=== PATIENT | female | born 1985 | race Caucasian/White ===

== ENCOUNTER 2023-06-21 20:32 | Emergency (ER) | payer SELFPAY ==
--- NOTE | 2023-06-21 21:12 | RAD REPORT ---
EXAM DESCRIPTION: RAD - Chest Single View - 06/21/2023 9:06 pm CLINICAL HISTORY: Chest pain;Dyspnea Chest pain. COMPARISON: <Comparisons> FINDINGS: Portable technique limits examination quality. The lungs are grossly clear. The heart is normal in size. No displaced fractures. IMPRESSION: No acute intrathoracic process suspected.
[2023-06-21 21:31] LABS: Absolute Basophils 0.1 K/uL (0-0.5); Absolute Eosinophils 0.1 K/uL (0-0.5); Absolute Lymphocytes (CBC) 2.1 K/uL (0.7-4.9); Absolute Monocytes 0.8 K/uL (0.1-1.3); Absolute Neutrophil 6.8 K/uL (1.8-8.0); Basophils % 0.8 % (0-1.3); Eosinophils % 1.5 % (0-4.4); Hematocrit 41.6 % (36.0-45.0); Hemoglobin 14.1 g/dL (12.0-15.0); Lymphocytes % 20.8 % (15.3-44.8); MCH 31.1 pg (27.0-35.0); MCV 91.4 fL (80-100); MPV 8.5 fL (7.6-11.3); Monocytes % 8.5 % (3.3-12.3); Neutrophils % 68.4 % (41.7-73.7); Nucleated Red Blood Cells % 0.1 % (0-0); Platelets 349 thou/uL (152-406); RBC Red Blood Cell Count 4.55 M/uL (3.86-4.86); Red Cell Distribution Width 12.4 % (12.1-15.2)
[2023-06-21 21:42] LABS: Anion Gap 6.8 mEq/L (5.0-15.0); Potassium 3.8 mEq/L (3.5-5.1)
--- NOTE | 2023-06-21 22:32 | EDPHYS ---
Physician Documentation [facility] Name: Nani Santana Age: 37 yrs Sex: Female : 1985 Arrival Date: 06/21/2023 Time: 20:32 Bed 18 Private MD: ED Physician Álvaro Gibbs HPI: 06/20 21:58 This 37 yrs old Female presents to ER via EMS with complaints of Chest Pain, Shortness kb Of Breath. 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 Pt was in [facility] and 2 other inmates started screaming just before her symptoms began. EMS reports HR was 135 upon their arrival and decreased to 105 when they got here. Denies fever. . Historical: - Allergies: 20:37 No Known Allergies; jb4 - Home Meds: 20:37 None [Active]; jb4 - PMHx: 20:37 None; jb4 - PSHx: 20:37 None; jb4 - Immunization history:: Adult Immunizations up to date. - Infectious Disease History:: Denies. - Social history:: Smoking status: Patient denies any tobacco usage or history of. ROS: 21:58 Constitutional: As per HPI kb Exam: 21:58 Constitutional: This is a well developed, well nourished patient who is awake, alert, kb and in no acute distress. Head/Face: Normocephalic, atraumatic. ENT: Moist Mucous membranes Cardiovascular: Regular rate Respiratory: Respirations even and unlabored. No increased work of breathing. Talking in full sentences Abdomen/GI: Soft, non-tender. No distention Skin: Warm, dry with normal turgor. Normal color. MS/ Extremity: Pulses equal, no cyanosis. Neurovascular intact. Full, normal range of motion. Neuro: Awake and alert, GCS 15, oriented to person, place, time, and situation. Moves all extremities. Normal gait. Vital Signs: 20:37 BP 154 / 110; Pulse 88; Resp 16; Temp 97.6; Pulse Ox 99% ; Weight 86.18 kg; Height 5 jb4 ft. 4 in. ; Pain 0/10; 21:33 BP 176 / 109; Pulse 76; Resp 16; Pulse Ox 98% on R/A; jb4 22:46 BP 150 / 101; Pulse 72; Resp 16; Pulse Ox 99% on R/A; jb4 20:37 Body Mass Index 32.61 (86.18 kg, 162.56 cm) jb4 20:37 Pain Scale: Adult jb4 MDM: 20:39 Patient medically screened. kb 22:01 Differential diagnosis: Anxiety Reaction pulmonary edema, acute WI, arrythmia. Data kb reviewed: vital signs, nurses notes. Historians other than the Patient: EMS: [facility]. 22:06 Counseling: I had a detailed discussion with the patient and/or guardian regarding the kb historical points, exam findings, and any diagnostic results supporting the discharge/admit diagnosis, lab results, radiology results, the need for outpatient follow up, a family practitioner, to return to the emergency department if symptoms worsen or persist or if there are any questions or concerns that arise at home. ED course: HEART score 0. 22:25 ED course: Pt sleeping comfortably upon discharge. kb 06/20 20:39 Order name: Basic Metabolic Panel; Complete Time: 21:45 kb 06/20 20:39 Order name: CBC with Diff; Complete Time: 21:55 kb 06/20 20:39 Order name: D-Dimer; Complete Time: 22:06 kb 06/20 20:39 Order name: Troponin HS; Complete Time: 21:45 kb 06/20 20:39 Order name: XRAY Chest (1 view); Complete Time: 21:14 kb 06/20 20:39 Order name: Cardiac monitoring; Complete Time: 21:13 kb 06/20 20:39 Order name: EKG - Nurse/Tech; Complete Time: 21:13 kb 06/20 20:39 Order name: IV Saline Lock; Complete Time: 21:13 kb 06/20 20:39 Order name: Labs collected and sent; Complete Time: 21:13 kb 06/20 20:39 Order name: O2 Per Protocol; Complete Time: 21:13 kb 06/20 20:39 Order name: O2 Sat Monitoring; Complete Time: 21:13 kb Administered Medications: No medications were administered Disposition: 06/21 05:08 Co-signature as Attending Physician, Álvaro Gibbs MD I agree with the assessment sp4 and plan of care. I reviewed the patient's care provided by the Advanced Practice Provider and agree with the diagnosis and treatment plan. Disposition Summary: 06/21/23 22:31 Discharge Ordered Notes: Location: Home kb Condition: Stable kb Diagnosis - Dyspnea kb Followup: kb - With: Emergency Department - When: As needed - Reason: Worsening of condition Followup: kb - With: Private Physician - When: 2 - 3 days - Reason: Recheck today's complaints, Continuance of care, Re-evaluation by your physician Discharge Instructions: - Discharge Summary Sheet kb - Shortness of Breath, Adult, Urgn-ya-Cecn kb - Panic Attack, [id number] kb Forms: - Medication Reconciliation Form kb - Thank You Letter kb - Antibiotic Education kb - Prescription Opioid Use kb - Patient Portal Instructions kb - Leadership Thank You Letter kb Signatures: Dispatcher [employer] EDMS Aiyana Soto, DEALERSHIP MANAGER-C LUIS-Ed Pascual, RN RN jb4 Álvaro Gibbs MD MD sp4 Corrections: (The following items were deleted from the chart) 06/20 20:40 20:40 BASIC METABOLIC PANEL+C.LAB.BRZ ordered. EDMS EDMS 20:40 20:40 CBC+H.LAB.BRZ ordered. EDMS EDMS 20:40 20:40 D-DIMER+COAG.LAB.BRZ ordered. EDMS EDMS 20:40 20:40 Troponin High Sensitivity+C.LAB.BRZ ordered. EDMS EDMS
--- NOTE | 2023-06-21 22:32 | ER ---
Nurse's Notes [facility] Name: Nani Santana Age: 37 yrs Sex: Female : 1985 Arrival Date: 06/21/2023 Time: 20:32 Bed 18 Private MD: Diagnosis: Dyspnea Presentation: 06/20 20:34 Chief complaint: Patient states: Pt reports SOB and chest tightness that started 1hr jb4 ago. Was given 324 of aspirin. Coronavirus screen: At this time, the client does not indicate any symptoms associated with coronavirus-19. Ebola Screen: No symptoms or risks identified at this time. Initial Sepsis Screen: Does the patient meet any 2 criteria? No. Patient's initial sepsis screen is negative. Does the patient have a suspected source of infection? No. Patient's initial sepsis screen is negative. Risk Assessment: Do you want to hurt yourself or someone else? Patient reports no desire to harm self or others. Onset of symptoms was June 21, 2023. Transition of care: patient was not received from another setting of care. 20:34 Method Of Arrival: EMS: [facility] jb4 20:34 Acuity: TIANNA 3 jb4 Triage Assessment: 20:37 General: Appears in no apparent distress. comfortable, Behavior is calm, cooperative, jb4 appropriate for age. Pain: Denies pain. EENT: No signs and/or symptoms were reported regarding the EENT system. Neuro: Level of Consciousness is awake, alert, obeys commands, Oriented to person, place, time, situation. Cardiovascular: Patient's skin is warm and dry. Respiratory: Airway is patent Respiratory effort is even, unlabored, Respiratory pattern is regular, symmetrical. GI: No signs and/or symptoms were reported involving the gastrointestinal system. : No signs and/or symptoms were reported regarding the genitourinary system. Derm: Skin is intact, Skin is pink, warm \T\ dry. Musculoskeletal: Circulation, motion, and sensation intact. Range of motion: intact in all extremities. Historical: - Allergies: 20:37 No Known Allergies; jb4 - Home Meds: 20:37 None [Active]; jb4 - PMHx: 20:37 None; jb4 - PSHx: 20:37 None; jb4 - Immunization history:: Adult Immunizations up to date. - Infectious Disease History:: Denies. - Social history:: Smoking status: Patient denies any tobacco usage or history of. Screenin:[address] [facility] ED Fall Risk Assessment (Adult) History of falling in the last 3 months, jb4 including since admission No falls in past 3 months (0 pts) Confusion or Disorientation No (0 pts) Intoxicated or Sedated No (0 pts) Impaired Gait No (0 pts) Mobility Assist Device Used No (0 pt) Altered Elimination No (0 pt) Score/Fall Risk Level 0 - 2 = Low Risk Oriented to surroundings, Maintained a safe environment. Abuse screen: Denies threats or abuse. Nutritional screening: No deficits noted. Tuberculosis screening: No symptoms or risk factors identified. Assessment: 20:44 Reassessment: see triage note. jb4 21:33 Reassessment: Patient appears in no apparent distress at this time. Patient and/or jb4 family updated on plan of care and expected duration. Pain level reassessed. Patient is alert, oriented x 3, equal unlabored respirations, skin warm/dry/pink. 22:46 Reassessment: Patient appears in no apparent distress at this time. Patient and/or jb4 family updated on plan of care and expected duration. Pain level reassessed. Patient is alert, oriented x 3, equal unlabored respirations, skin warm/dry/pink. Vital Signs: 20:37 BP 154 / 110; Pulse 88; Resp 16; Temp 97.6; Pulse Ox 99% ; Weight 86.18 kg; Height 5 jb4 ft. 4 in. ; Pain 0/10; 21:33 BP 176 / 109; Pulse 76; Resp 16; Pulse Ox 98% on R/A; jb4 22:46 BP 150 / 101; Pulse 72; Resp 16; Pulse Ox 99% on R/A; jb4 20:37 Body Mass Index 32.61 (86.18 kg, 162.56 cm) jb4 20:37 Pain Scale: Adult jb4 ED Course: 20:34 Patient arrived in ED. ty 20:34 Ed Kumar, MIGUEL is Primary Nurse. jb4 20:36 Triage completed. jb4 20:37 Arm band placed on right wrist. jb4 20:39 Aiyana Soto FNP-C [facility]. kb 20:39 Álvaro Gibbs MD is Attending Physician. kb 20:44 Patient has correct armband on for positive identification. Bed in low position. Call jb4 light in reach. Side rails up X 1. Provided Education on: plan of care. 21:07 XRAY Chest (1 view) In Process Unspecified. EDMS 22:46 No provider procedures requiring assistance completed. IV discontinued, intact, jb4 bleeding controlled, No redness/swelling at site. Pressure dressing applied. Administered Medications: No medications were administered Medication: 20:44 VIS not applicable for this client. jb4 Outcome: 22:31 Discharge ordered by . bravo 22:46 Discharged to Law Enforcement jb4 22:46 Condition: stable 22:46 Discharge instructions given to patient, Instructed on discharge instructions, follow up and referral plans. Demonstrated understanding of instructions, follow-up care, 22:47 Patient left the ED. jb4 Signatures: Dispatcher [employer] EDMS Aiyana Soto, UTILITY BAG ASSEMBLER-C UTILITY BAG ASSEMBLER-Ed Pascual, RN RN jb4 Joaquín Moser
[2023-06-21 22:52] VITALS: TEMP 97.6; O2SAT 99
[2023-06-21 23:25] VITALS: BP 150/101
--- NOTE | 2023-06-22 12:34 | EKG ---
Test Date: 2023-06-21 Test Time: 20:53:14 Hospital Superintendent: LAYLA MEASUREMENT RESULTS: Intervals: Rate: 86 IA: 138 QRSD: 82 QT: 386 QTc: 461 [place]: P: 71 IA: 138 QRS: 81 T: 64 INTERPRETIVE STATEMENTS: Sinus rhythm with sinus arrhythmia with occasional premature ventricular complexes Otherwise normal ECG No previous ECG available for comparison Electronically Signed On 06-22-23 12:32:38 CDT by Reggie Huddleston
== END 2023-06-21 22:47 | disposition home or self-care (01) ==
LOC: ER 20:32
DX: R06.00 Dyspnea, unspecified (principal); R07.9 Chest pain, unspecified
CPT/HCPCS: 36415; 71045; 80048; 84484; 85025; 85379; 93005